=== PATIENT | female | born 1995 | race American Indian/Alaskan Native ===

== ENCOUNTER 2023-09-13 08:38 | Emergency (ER) | payer MEDICAID ==
[~2023-09-13] VITALS: Ht 157.5 cm; Wt 75.3 kg
[2023-09-13] MEDS: LIDOCAINE VISCOUS 2% 15ML UD MT ONE (09:44)
[2023-09-13] MEDS: GLUCAGON EMERG KIT 1mg/1ml IM ONE (09:53)
[2023-09-13 10:19] VITALS: BP 131/90; PULSE 85; RESP 18; TEMP 98.8; O2SAT 97
[2023-09-13] MEDS ORDERED: LIDO2SOL26 MT (11:09)
== END 2023-09-13 11:24 | disposition home or self-care (01) ==
LOC: ER 08:38
DX: R09.A2 Foreign body sensation, throat (principal)
CPT/HCPCS: 96372; 99283; J1610

== ENCOUNTER 2023-10-17 10:01 | Emergency (ER) | payer MEDICAID ==
[~2023-10-17] VITALS: Ht 157.5 cm; Wt 74.5 kg
[~2023-10-17 10:01] MED LIST: LIDO2SOL26 MT
[2023-10-17 10:36] LABS: Basophils # (auto) 0 10 ^3/uL (0-0.2); Basophils % (auto) 0.2 % (0.0-2.0); Eosinophils # (auto) 0 10 ^3/uL (0-0.8); Hematocrit 42.9 % (36.0-46.0); Hemoglobin 14.9 g/dL (12.2-16.2); Lymphocytes # (auto) 0.9 10 ^3/uL (0.4-5.4); Lymphocytes % (auto) 12.6 % (10.0-50.0); Mean Corpuscular Hgb Conc. 34.8 g/dL (32.0-36.0); Mean Corpuscular Volume 86.2 fL (80.0-100.0); Monocytes # (auto) 0.3 10 ^3/uL (0-1.3); Monocytes % (auto) 3.4 % (0.0-12.0); Neutrophils # (auto) 6.3 10 ^3/uL (1.6-8.6); Neutrophils % (auto) 83.8 % (37.0-80.0); Platelet Count (auto) 198 10^3/uL (140-450); Red Blood Cells 4.98 10^6/uL (4.0-5.20); White Blood Cell 7.5 10^3/uL (4.4-10.8)
[2023-10-17 10:54] LABS: Alanine Aminotransferase 17 U/L (7-40); Alkaline Phosphatase 61 U/L (46-116); Anion Gap 7 (5-15); Aspartate Aminotransferase 15 U/L (13-40); BUN/Creatinine Ratio 11.6 (10.0-20.0); Blood Urea Nitrogen 8 mg/dL (9-23); Carbon Dioxide 22 mmol/L (20-30); Chloride 107 mmol/L (98-107); Glucose 97 mg/dL (74-106); Potassium 3.3 mmol/L (3.5-5.1); Sodium 136 mmol/L (136-145)
[2023-10-17 10:55] LABS: Bilirubin, Total 0.6 mg/dL (0.2-1.0); Total Protein 8.2 g/dL (5.7-8.2)
[2023-10-17 11:01] LABS: INR 1.05 (0.9-1.15); Partial Thromboplastin Time 27.3 SEC (24.5-34.5); Prothrombin Time 11.1 sec (9.3-11.8)
[2023-10-17 12:40] VITALS: BP 136/79; PULSE 76; RESP 16; TEMP 98.5; O2SAT 98
[2023-10-17 13:21] LABS: Urine Bacteria MOD /hpf (None Seen); Urine Blood Negative /uL (Negative); Urine Clarity Clear (Clear); Urine Color Light-Yellow (Yellow); Urine Mucus FEW (None Seen); Urine Protein, UAD Negative (Negative); Urine Specific Gravity 1.013 (1.001-1.035); Urine Urobilinogen Normal (Negative); Urine WBC 2 /hpf (0 - 5)
== END 2023-10-17 15:19 | disposition home or self-care (01) ==
LOC: ER 10:01
DX: R07.89 Other chest pain (principal); T67.5XXA Heat exhaustion, unspecified, initial encounter; F12.10 Cannabis abuse, uncomplicated; X58.XXXA Exposure to other specified factors, initial encounter; Y93.89 Activity, other specified; Y92.89 Other specified places as the place of occurrence of the external cause; Y99.8 Other external cause status
CPT/HCPCS: 36415; 71045; 80053; 81001; 84484; 85025; 85610; 85730; 93005